=== PATIENT | male | born 1980 | race Caucasian/White ===

== ENCOUNTER 2020-02-13 15:48 | Emergency (ER) | payer SELFPAY ==
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
[2020-02-13 17:19] VITALS: BP 138/95
== END 2020-02-13 17:18 | disposition home or self-care (01) ==
LOC: ED 15:48
DX: S60.222A Contusion of left hand, initial encounter (principal); V43.52XA Car driver injured in collision with other type car in traffic accident, initial encounter; Y92.488 Other paved roadways as the place of occurrence of the external cause
CPT/HCPCS: 99281